=== PATIENT | female | born 1985 | race African-American/Black ===

== ENCOUNTER 2017-01-27 16:03 | Emergency (ER) | payer BC ==
[~2017-01-27] VITALS: Ht 162.6 cm; Wt 90.0 kg
[~2017-01-27 16:03] MED LIST: PRED5TAB PO
[2017-01-27] MEDS ORDERED: CLONIDINE 0.2MG TABLET PO ONE (18:45)
[2017-01-27] MEDS ORDERED: MORPHINE SULFATE 4 MG/ML CPJ (NOT FOR IM USE) IV ONE (18:45)
[2017-01-27 20:18] VITALS: BP 164/90
== END 2017-01-27 20:19 | disposition home or self-care (01) ==
LOC: ER 17:10
DX: I16.0 Hypertensive urgency (principal); I10 Essential (primary) hypertension; E11.9 Type 2 diabetes mellitus without complications; M32.9 Systemic lupus erythematosus, unspecified
CPT/HCPCS: 36415; 84484; 93005; 96374; 99285; J2270